=== PATIENT | female | born 2000 | race Caucasian/White ===

== ENCOUNTER 2020-11-16 14:32 | Emergency (ER) | payer BC ==
[~2020-11-16] VITALS: Ht 160 cm; Wt 87.7 kg
--- NOTE | 2020-11-16 16:02 | ED General ---
General Chief Complaint: Cough/Cold/Flu Symptoms Stated Complaint: COUGH Nursing Triage Note: ONSET COUGH LAST NIGHT BOYFRIEND MOTHER POS ON WEDNESDAY Source of Information: Patient Exam Limitations: No Limitations History of Present Illness Date Seen by Provider: Nov 16, 2020 Time Seen by Provider: 16:00 Initial Comments To ER with reports of a cough that began last night. Her mother tested positive for Covid on . Timing/Duration: 1-2 Days Severity: Moderate Associated Systoms: Denies Symptoms Allergies and Home Medications Patient Home Medication List Home Medication List Reviewed: Yes Review of Systems Review of Systems Constitutional: see HPI EENTM: see HPI Respiratory: no symptoms reported Cardiovascular: see HPI, chest pain Genitourinary: no symptoms reported Musculoskeletal: no symptoms reported Skin: no symptoms reported Psychiatric/Neurological: No Symptoms Reported Hematologic/Lymphatic: No Symptoms Reported Past [id number] Hx Patient Social History Tobacco Use?: No Substance use?: No Pt feels they are or have been: No Physical Exam Vital Signs Vital Signs - First Documented 11/16/20 14:50 Pulse 100 Resp 18 B/P (MAP) 140/94 (109) Pulse Ox 97 O2 Delivery Room Air Capillary Refill : Less Than 3 Seconds Height, Weight, BMI Height: '" Weight: lbs. oz. kg; 34.00 BMI Method: General Appearance: No Apparent Distress, WD/WN Eyes: Bilateral Eye Normal Inspection, Bilateral Eye PERRL, Bilateral Eye EOMI HEENT: PERRL/EOMI, TMs Normal Neck: Full Range of Motion, Normal Inspection Respiratory: No Accessory Muscle Use, No Respiratory Distress Cardiovascular: Regular Rate, Rhythm, Normal Peripheral Pulses Gastrointestinal: Normal Bowel Sounds, Non Tender, Soft Extremity: Normal Capillary Refill, Normal Inspection Neurologic/Psychiatric: Alert, Oriented x3 Skin: Normal Color, Warm/Dry Progress/Results/Core Measures Suspected Sepsis SIRS Temperature: Pulse: 100 Respiratory Rate: 18 Blood Pressure 140 /94 Mean: 109 Results/Orders Lab Results Laboratory Tests Test 11/16/20 14:52 Range/Units Influenza Type A (RT-PCR) Not Detected Not Detecte Influenza Type B (RT-PCR) Not Detected Not Detecte SARS-CoV-2 RNA (RT-PCR) Detected H Not Detecte My Orders Orders - BERT AUSTIN APRN Covid 19 Inhouse Test (11/16/20 15:08) Influenza A And B By Pcr (11/16/20 15:08) Vital Signs/I&O 11/16/20 14:50 Pulse 100 Resp 18 B/P (MAP) 140/94 (109) Pulse Ox 97 O2 Delivery Room Air Capillary Refill : Less Than 3 Seconds Blood Pressure Mean: 109 Departure Communication (Admissions) I discussed with her the alternatives to treatment as well as the emergency use authorization by the FDA of Regeneron.. She is would like to proceed. Impression Primary Impression: COVID-19 Disposition: 01 HOME, SELF-CARE Condition: Stable Departure-Patient Inst. Decision time for Depature: 16:00 Patient Instructions: REGEN-COV (casirivimab and imdevimab) FDA Fact Sheet, COVID-19 (DC) Add. Discharge Instructions: . Tylenol and ibuprofen for fever control. Medication as directed. Follow-up with your doctor next week. Scheduling department will call you on Wednesday for an appointment time next week for infusion of Regeneron. All discharge instructions reviewed with patient and/or family. Voiced understanding. BERT AUSTIN APRN Nov 16, 2020 16:02
[2020-11-16 16:27] VITALS: BP 140/94
== END 2020-11-16 16:35 | disposition home or self-care (01) ==
LOC: EDUNIT# 14:32 → ER 14:34
DX: U07.1 COVID-19 (principal)
CPT/HCPCS: 87636; 99282